=== PATIENT | male | born 1985 | race African-American/Black ===

== ENCOUNTER 2019-12-05 07:58 | Emergency (ER) | payer OTHER, SELFPAY ==
[2019-12-05 08:01] VITALS: BP 146/100; PULSE 71; RESP 18; TEMP 36.3; O2SAT 100
[2019-12-05 08:09] VITALS: BP 146/100; PULSE 71; RESP 18; TEMP 36.3; O2SAT 100
--- NOTE | 2019-12-05 08:12 | PC.NURSE ---
triage completed. resting on stretcher. waiting for further orders from provider. call light in reach.
--- NOTE | 2019-12-05 08:52 | ED.DENTAL ---
HPI - Dental/Oral General Chief complaint: Dental/Oral Stated complaint: dental pain Time Seen by Provider: 12/05/19 08:49 Source: patient Mode of arrival: ambulatory Limitations: no limitations History of Present Illness HPI Narrative: 34 years old -[place] male presents with bilateral lower teeth pain started 1 week ago. Patient denies any fever, chills, nausea, vomiting, headache, ear pain or neck pain. Patient does not remember when the last time have seen a dentist. Patient reports that ibuprofen is not working and would like some tramadol. Patient is allergic to penicillin. Complaint: tooth pain Related Data Allergies Allergy/AdvReac Type Severity Reaction Status Date / Time Penicillins Allergy Hives Verified 12/05/19 08:13 Review of Systems Review of Systems: Narrative: CONSTITUTIONAL: Denies fever, chills, or sweats. EYES: Denies visual changes, redness, or discharge. ENT: Denies rhinorrhea, congestion, sore throat, or otalgia. CARDIOVASCULAR: Denies chest pain, palpitations, or edema. RESPIRATORY: Denies cough or dyspnea. GASTROINTESTINAL: Denies abdominal pain, nausea, vomiting, or diarrhea. GENITOURINARY: Denies dysuria or hematuria. SKIN: Denies rash or itching. MUSCULOSKELETAL: Denies back pain, joint pain, or myalgia. NEUROLOGIC: Denies headache, numbness, or weakness. PSYCHIATRIC: Denies anxiety or depression. [facility] Social History Social History (Updated 12/05/19 @ 08:54 by Shannan Bruce MD) Social History: Patient smokes and drinks occasionally Second hand tobacco smoke exposure: No Exam Narrative: Exam Narrative: General appearance: Well-developed, well-nourished Skin: Normal color Head: Normocephalic, nontraumatic Eyes: Clear conjunctiva ENT: Oropharynx normal, ears normal, nose normal, moderate tenderness of the lower gum bilaterally, with dental decay. No swelling, no abscess, no enlargement of the parotid glands, no erythema, no redness or rash, patient unable to open his mouth wide Neck: Supple, nontender Chest and respiratory: Airway patent, no respiratory distress, no accessory muscle use Heart: Regular rate/rhythm Neurologic: Alert and oriented ?3, [employer] is normal as tested, no gross motor deficit Course Course Emergency Course: Stable Vital Signs Vital signs: Vital Signs Temperature 36.3 C L 12/05/19 08:01 Pulse Rate 71 12/05/19 08:01 Respiratory Rate 18 12/05/19 08:01 Blood Pressure 146/100 H 12/05/19 08:01 Pulse Oximetry 100 12/05/19 08:01 Temperature 36.3 C L 12/05/19 08:09 Pulse Rate 71 12/05/19 08:09 Respiratory Rate 18 12/05/19 08:09 Blood Pressure 146/100 H 12/05/19 08:09 Pulse Oximetry 100 12/05/19 08:09 MDM - Dental/Oral MDM Narrative Medical decision making narrative: Dental infection, Discharged on clindamycin and ibuprofen Critical Care Time Critical Care Time Critical Care Time: No Discharge Plan Discharge Clinical Impression: Toothache Patient Disposition: Home, Self-Care Condition: Stable Instructions: Antibiotic Form, Toothache (ED) Additional Instructions: Call your dentist for follow-up Prescriptions: New clindamycin HCl 300 mg capsule 300 mg PO Q6H Qty: 40 RF: 0 ibuprofen 800 mg tablet 800 mg PO TID PRN (Reason: pain) Qty: 20 RF: 0 Follow-up/Referrals: PHYSICIAN,INSURANCE WRITER [Primary Care Provider] - Royal Hawkins MD [Physician] - Stand Alone Forms: Work/School Release IP
[2019-12-05] MEDS: IBUPROFEN 400 MG TABLET 800 MG PO (09:07)
[2019-12-05] MEDS: traMADol HCL (*CRX) 50 MG TABLET 100 MG PO (09:08)
--- NOTE | 2019-12-05 09:15 | PC.NURSE ---
patient ready for discharge. denies needs. see discharge charting.
[2019-12-05 09:19] VITALS: BP 128/78; PULSE 80; TEMP 36.7; O2SAT 100
== END 2019-12-05 09:35 | disposition home or self-care (01) ==
PROVIDERS: Emergency Provider Emergency Medicine
DX: K08.89 Other specified disorders of teeth and supporting structures (principal); F17.200 Nicotine dependence, unspecified, uncomplicated
CPT/HCPCS: 99283; A9270